=== PATIENT | male | born 1940 | race Two or more races ===

== ENCOUNTER 2018-10-29 07:22 | Day surgery (SDC) | payer OTHER ==
[~2018-10-29 07:22] MED LIST: LYRICA150 MG PO; METFORMIN HCL500 MG PO
== END 2018-10-29 14:45 | disposition home or self-care (01) ==
LOC: CIR.AMB 07:22
DX: M51.36 Other intervertebral disc degeneration, lumbar region (principal)

== ENCOUNTER 2021-11-11 15:18 | Inpatient (IN) | payer OTHER ==
[~2021-11-11] VITALS: Ht 167.6 cm; Wt 81.6 kg
[2021-11-11] MEDS ORDERED: TOPROL XL50 M1 PO (15:59)
[2021-11-11] MEDS ORDERED: GLUMETZA500 MG PO (15:59)
[2021-11-11] MEDS ORDERED: ATORVASTATIN CA40 MG PO (15:59)
[2021-11-11] MEDS ORDERED: GLIPIZIDE XL10 MG PO (15:59)
[2021-11-11] MEDS ORDERED: LYRICA225 MG (16:00)
[2021-11-22] MEDS ORDERED: AMLODIPINE BESY10 MG PO (11:01)
[2021-11-22] MEDS ORDERED: LIPITOR20 MG PO (11:01)
[2021-11-22] MEDS ORDERED: LOSARTAN POTAS100 MG PO (11:01)
[2021-11-22] MEDS ORDERED: QUETIAPINE FUMA25 MG PO (11:02)
[2021-11-22] MEDS ORDERED: KEPPRA500 MG PO (11:04)
[2021-11-22] MEDS ORDERED: TOPROL XL50 M1 PO (11:09)
[2021-11-22] MEDS ORDERED: DIOVAN40 MG (16:45)
== END 2021-11-22 11:56 | disposition home or self-care (01) | DRG 64 ==
LOC: ER 15:18 → ICU-2 11-12 08:58 → ICU 11-16 04:24 → MEDI 11-20 22:16 → ICU 11-20 22:20 → MEDI 11-21 22:07
PROVIDERS: ADMIT Internal Medicine; ATTEND Internal Medicine
PROC: B030ZZZ Magnetic Resonance Imaging (MRI) of Brain (ICD-10-PCS; principal; 2021-11-12)
PROC: BW28ZZZ Computerized Tomography (CT Scan) of Head (ICD-10-PCS; 2021-11-13)
PROC: B24BZZZ Ultrasonography of Heart with Aorta (ICD-10-PCS; 2021-11-15)
PROC: 4A12X4Z Monitoring of Cardiac Electrical Activity, External Approach (ICD-10-PCS; 2021-11-21)
DX: I61.1 Nontraumatic intracerebral hemorrhage in hemisphere, cortical (principal); I63.89 Other cerebral infarction; E85.4 Organ-limited amyloidosis; E11.9 Type 2 diabetes mellitus without complications; Z79.4 Long term (current) use of insulin; R42 Dizziness and giddiness; G44.89 Other headache syndrome; I10 Essential (primary) hypertension; I68.0 Cerebral amyloid angiopathy; Z20.822 Contact with and (suspected) exposure to COVID-19; R41.0 Disorientation, unspecified; E78.00 Pure hypercholesterolemia, unspecified
CPT/HCPCS: 70544

== ENCOUNTER 2021-11-22 16:32 | Emergency (ER) | payer OTHER ==
[~2021-11-22] VITALS: Ht 165.1 cm; Wt 70.3 kg
[~2021-11-22 16:32] MED LIST changes: +AMLODIPINE BESY10 MG PO; +ATORVASTATIN CA40 MG PO; +GLIPIZIDE XL10 MG PO; +GLUMETZA500 MG PO; +KEPPRA500 MG PO; +LIPITOR20 MG PO; +LOSARTAN POTAS100 MG PO; +LYRICA225 MG; +QUETIAPINE FUMA25 MG PO; +TOPROL XL50 M1 PO
[2021-11-22] MEDS ORDERED: DIOVAN40 MG (16:45)
== END 2021-11-23 08:37 | disposition home or self-care (01) ==
LOC: ER 16:32
DX: R55 Syncope and collapse (principal); E86.0 Dehydration

== ENCOUNTER 2021-11-23 22:31 | Inpatient (IN) | payer OTHER ==
[~2021-11-23] VITALS: Ht 162.6 cm; Wt 69.9 kg
[~2021-11-23 22:31] MED LIST changes: +DIOVAN40 MG
[2021-12-02] MEDS ORDERED: ATORVASTATIN CA10 MG (08:26)
[2021-12-02] MEDS ORDERED: GABAPENTIN800 M1 (08:26)
[2021-12-02] MEDS ORDERED: LOSARTAN POTAS100 MG (08:26)
[2021-12-02] MEDS ORDERED: LEVETIRACETAM500 MG (08:26)
[2021-12-02] MEDS ORDERED: AMLODIPINE BESY10 MG (08:26)
[2021-12-02] MEDS ORDERED: ETODOLAC500 MG (08:26)
[2021-12-02] MEDS ORDERED: NAPROXEN SODIU550 MG (08:27)
[2021-12-02] MEDS ORDERED: METOPROLOL TART50 MG (08:27)
[2021-12-02] MEDS ORDERED: METFORMIN HCL500 M4 (08:27)
[2021-12-02] MEDS ORDERED: GLIPIZIDE10 MG (08:27)
[2021-12-09] MEDS ORDERED: LOSARTAN POTAS100 MG PO (08:04)
[2021-12-09] MEDS ORDERED: TOPROL XL25 M1 PO (08:06)
[2021-12-09] MEDS ORDERED: TOPROL XL50 M1 PO (08:06)
[2021-12-09] MEDS ORDERED: KEPPRA500 MG PO (08:11)
[2021-12-09] MEDS ORDERED: ISORDIL10 MG PO (08:13)
[2021-12-09] MEDS ORDERED: AMLODIPINE BESY10 MG PO (08:13)
[2021-12-09] MEDS ORDERED: INTESTINEX680 M1 PO (08:15)
[2021-12-09] MEDS ORDERED: PEPCID AC20 MG PO (08:16)
[2021-12-09] MEDS ORDERED: SEROQUEL XR50 MG PO (08:17)
[2021-12-09] MEDS ORDERED: Lipitor 10MG TABLET PO (08:18)
[2021-12-09] MEDS ORDERED: LYRICA150 MG PO (08:18)
== END 2021-12-09 12:23 | disposition home or self-care (01) | DRG 871 ==
LOC: ER 22:31 → MEDJ 11-24 12:19 → ICU 11-29 21:35 → MEDJ 12-03 20:04 → MEDI 12-04 16:38
PROVIDERS: ADMIT Internal Medicine; ATTEND Internal Medicine
PROC: 4A12X4Z Monitoring of Cardiac Electrical Activity, External Approach (ICD-10-PCS; principal; 2021-11-24)
PROC: B24BZZZ Ultrasonography of Heart with Aorta (ICD-10-PCS; 2021-11-24)
PROC: BF37ZZZ Magnetic Resonance Imaging (MRI) of Pancreas (ICD-10-PCS; 2021-11-27)
DX: A41.53 Sepsis due to Serratia (principal); U07.1 COVID-19; I61.8 Other nontraumatic intracerebral hemorrhage; I21.4 Non-ST elevation (NSTEMI) myocardial infarction; I21.A1 Myocardial infarction type 2; N39.0 Urinary tract infection, site not specified; K80.00 Calculus of gallbladder with acute cholecystitis without obstruction; R41.82 Altered mental status, unspecified; I10 Essential (primary) hypertension; E78.00 Pure hypercholesterolemia, unspecified; R53.81 Other malaise; D72.828 Other elevated white blood cell count; M25.552 Pain in left hip; E11.65 Type 2 diabetes mellitus with hyperglycemia; Z74.01 Bed confinement status; Z79.4 Long term (current) use of insulin

== ENCOUNTER 2022-11-20 20:47 | Emergency (ER) | payer OTHER ==
[~2022-11-20] VITALS: Ht 160 cm; Wt 70.3 kg
[~2022-11-20 20:47] MED LIST changes: +AMLODIPINE BESY10 MG; +ATORVASTATIN CA10 MG; +ETODOLAC500 MG; +GABAPENTIN800 M1; +GLIPIZIDE10 MG; +INTESTINEX680 M1 PO; +ISORDIL10 MG PO; +LEVETIRACETAM500 MG; +LOSARTAN POTAS100 MG; +Lipitor 10MG TABLET PO; +METFORMIN HCL500 M4; +METOPROLOL TART50 MG; +NAPROXEN SODIU550 MG; +PEPCID AC20 MG PO; +SEROQUEL XR50 MG PO; +TOPROL XL25 M1 PO
== END 2022-11-21 02:36 | disposition home or self-care (01) ==
LOC: ER 20:47
DX: R41.82 Altered mental status, unspecified (principal); Z86.73 Personal history of transient ischemic attack (TIA), and cerebral infarction without residual deficits; Z20.822 Contact with and (suspected) exposure to COVID-19

== ENCOUNTER 2023-06-20 13:36 | Inpatient (IN) | payer OTHER ==
[~2023-06-20] VITALS: Ht 167.6 cm; Wt 72.1 kg
[2023-06-24] MEDS ORDERED: TAMS0.4C PO (09:58)
[2023-06-24] MEDS ORDERED: INTEGRA PLUS C1 EACH PO (09:58)
[2023-06-24] MEDS ORDERED: QUETIAPINE FUMA25 MG PO (09:58)
[2023-06-24] MEDS ORDERED: B Complex PO (09:58)
[2023-06-24] MEDS ORDERED: LEVOTHYROXINE50 MCG PO (09:58)
[2023-06-24] MEDS ORDERED: PROTONIX40 MG PO (09:58)
[2023-06-24] MEDS ORDERED: TOPROL XL50 M1 PO (09:58)
== END 2023-06-24 14:08 | disposition home or self-care (01) | DRG 379 ==
LOC: ER 13:36 → MEDI 23:49
PROVIDERS: ADMIT Internal Medicine; ATTEND Internal Medicine
PROC: BW21YZZ Computerized Tomography (CT Scan) of Abdomen and Pelvis using Other Contrast (ICD-10-PCS; 2023-06-20)
PROC: 0DJ08ZZ Inspection of Upper Intestinal Tract, Via Natural or Artificial Opening Endoscopic (ICD-10-PCS; principal; 2023-06-23)
DX: K25.4 Chronic or unspecified gastric ulcer with hemorrhage (principal); K31.819 Angiodysplasia of stomach and duodenum without bleeding; K29.80 Duodenitis without bleeding; K81.9 Cholecystitis, unspecified; D50.0 Iron deficiency anemia secondary to blood loss (chronic); D69.59 Other secondary thrombocytopenia; E03.9 Hypothyroidism, unspecified; E11.9 Type 2 diabetes mellitus without complications; Z79.84 Long term (current) use of oral hypoglycemic drugs